=== PATIENT | female | born 1955 | race Caucasian/White ===

== ENCOUNTER 2023-08-03 00:08 | Inpatient (IN) ==
[2023-08-03 00:49] LABS: Basophils # (auto) 0.03 K/uL (0.00-0.20); Basophils % (auto) 0.5 %; Eosinophils # (auto) 0.09 K/uL (0.00-0.50); Eosinophils % (auto) 1.4 %; Hematocrit (blood only) 41.5 % (37.0-47.0); Hemoglobin 13.4 g/dl (12.0-16.0); Immature Granulocytes # (auto) 0.02 K/uL (0.01-0.20); Immature Granulocytes % (auto) 0.3 %; Lymphocytes # (auto) 1.84 K/uL (1.20-3.40); Lymphocytes % (auto) 28.8 %; Mean Corpuscular Hemoglobin 27.7 pg (25.0-34.0); Mean Corpuscular Hgb Conc 32.3 g/dL (32.0-36.0); Mean Corpuscular Volume 85.7 fL (80.0-100.0); Mean Platelet Volume 10.2 fL (9.4-12.4); Monocytes # (auto) 0.56 K/uL (0.11-0.59); Monocytes % (auto) 8.8 %; Neutrophils # (auto) 3.84 K/uL (1.40-6.50); Neutrophils % (auto) 60.2 %; Platelet Count 264 K/uL (130-400); RDW Coefficient of Variation 13.3 % (11.5-14.5); RDW Standard Deviation 41.2 fL (36.4-46.3); Red Blood Count 4.84 M/uL (4.20-5.40); White Blood Count 6.38 K/ul (4.8-10.8)
[2023-08-03] MEDS: ONDANSETRON INJ 2 MG/ML 2 ML VIAL IV STA (00:49)
[2023-08-03] MEDS: MoRPHine SULFATE 4 MG/ML 1 ML CARP\\VIAL IV STA (00:50)
--- NOTE | 2023-08-03 00:55 | Urology Consultation ---
<Statement entered by Rad Love MD - 08/03/23 09:30> I have discussed Ms. Nava case with Aneesh Jordan PA-C and agree with the above documentation. Mendoza catheter placed at outside emergency department appears to be in good position and has been draining well. CT cystogram did not demonstrate any drainage of contrast into areas outside of the bladder, arguing against bladder leak. Radiology comments on possible extraperitoneal collections, which should be adequately managed with catheter in place. I suspect her intra-abdominal fluid is reactive in response to her recent surgery. Since abdominal pain seems to have improved with the catheter, she has no leukocytosis and creatinine is normal, will hold off any additional intervention for the time being. Would maintain Mendoza catheter in place for approximately 1 week to allow bladder rest. Would continue antibiotics and narrow coverage as culture data becomes available. -Rad Love MD Date of Consultation August 03, 2023 Assessment & Plan (1) Abdominal pain: I discussed with the treating clinician in the emergency department the patient is being admitted on the hospital service. From a urologic perspective we will proceed as follows: Provide analgesics Provide antiemetics Maintain Mendoza catheter to gravity drainage The patient did receive Rocephin due to concern for underlying urinary tract infection at the [facility]. Would recommend continuing antibiotics which can be tailored based on urine culture which is pending. Due to the noted abdominal ascites on CT scan from [facility] and the patient's recent urologic procedure we will plan on performing a CT cystogram to evaluate for possible bladder leak/perforation. This study has been ordered and is currently pending. (The patient does have a listed allergy to iodine which is listed as a local reaction; asked the patient if she was aware of this allergy and she is uncertain of any such allergy. Review of her records does show that she has had CT scans at [facility] utilizing IV contrast in the past and she said that she has had no issues) Additional recommendations be forthcoming based on her clinical course as it unfolds Addendum (3:00 AM) Results of patient's abdominal imaging have been obtained. On the CT cystogram small amount of infiltration and fluid in the extraperitoneal space anterior and superior to the bladder containing an abnormal extraluminal air collection was noted raising concern for potential bladder rupture. There is no active extravasation of contrast however on the study. There is a moderate amount of free fluid in the abdomen around the liver and spleen and in the pelvis. There is no intraperitoneal free air. Gallbladder ultrasound showed some gallbladder sludge but no evidence of cholecystitis. I suspect the patient's abdominal pain is due to the findings on the CT cystogram. I discussed the case with my attending physician Dr. Love. Is possible that during the patient's procedure the use of cautery in the bladder could have caused inflammation resulting in the findings noted on the CT cystogram. As there is no contrast extravasation at this time it does not appear that the patient requires acute surgical intervention. For the present time we will maintain Mendoza catheter to promote maximal urinary drainage. Will continue with remainder of plan as noted above but keep the patient n.p.o. and she will be reevaluated in the morning on 08/03/2023 with further recommendations to follow. I revisited with the patient and reviewed the CT cystogram findings with her and outlined the above plan with her and she is in agreement. (2) Acute kidney injury: (3) Urinary retention: History of Present Illness Reason for Consultation: Abdominal pain History of Present Illness This is a 68-year-old female who underwent a surgical procedure by Dr. Te De Anda of [facility] on 07/31/2023. The patient underwent a cystoscopy with transurethral resection of a bladder tumor and fulguration of bladder lesions. The patient notes that she was initially doing well following her procedure and was able to void without difficulty. She notes over the next 24 to 48 hours she began having some generalized abdominal pain and was having urinary frequency only able to void small amounts. She denied any fevers, shakes, or chills. She did report some nausea and vomiting. She does note that she has abdominal pain in the right upper quadrant of her abdomen as well as her lower abdomen. She did not report any radiation or modifying factors to her abdominal pain. Because of patient's symptomatology she is presented to the [place] emergency department. It was felt the patient was having urinary retention so Mendoza catheter was placed where patient had an excess of 350 cc of urine drained. The patient did note significant relief of her symptomatology with this modality. Due to concern for underlying urinary tract infection she did receive a dose of Rocephin. In the emergency department at [facility] the patient did have labs and imaging. I was not able to view the actual CT scan images but a CT scan report was available. This study showed the patient had no evidence of small bowel obstruction or free intraperitoneal air. The kidneys, spleen, and adrenal glands were noted to be normal. The bladder was nondistended and decompressed with a Mendoza catheter in place. There is marked intra-abdominal ascites noted in the gallbladder. Distended. Labs included a CBC were white blood cell count was 10.2. Hemoglobin and hematocrit were 13.7 and 41.2. Platelet count was 351,000. Urinalysis was positive for nitrites and moderate leukocyte esterase. There is also yeast noted on the study but no bacteria. Patient did have a chemistry profile checked at approximately 6:00 PM which showed a sodium and potassium of 132 and 3.8. Her BUN and creatinine were 46 and 3.0. This chemistry profile was repeated at approximately 9:40 PM and her BUN and creatinine had improved to 37 and 1.8. Sodium and potassium were noted to be 130 and 3.7. The treating emergency room physician contacted [facility] requesting transfer. I spoke with the treating emergency room physician and then spoke with my attending physician, Dr. Love who spoke directly with the treating emergency room physician. It was recommended the patient undergo a CT cystogram which [facility] could not perform. No beds were available for transfer at that time and therefore the physician at [facility] hydrated the patient and repeated her chemistry profile as noted above. The patient reported that it was recommended that she go to [facility] in [place], [place] for cystogram but she preferred to come to [facility] where her surgical procedure was performed. Since presentation to [facility] the patient has had repeat labs. CBC reveals white blood cell count, hemoglobin, hematocrit, and platelet count are all within normal range. Chemistry profile shows sodium is 138 with a po tassium of 3.4. The patient's BUN and creatinine is 33 and 1.3. The patient did have a slight elevation of her alkaline phosphatase at 105, but her LFTs were otherwise unremarkable. Her lipase was also nonelevated. At the time of my interview she was lying in bed. She appeared somewhat uncomfortable but was in no distress. Allergies Allergy/AdvReac Type Severity Reaction Status Date / Time iodine Allergy Mild "LOCAL Verified 08/03/23 01:03 REACTION" Sulfa (Sulfonamide Allergy Unknown UNKNOWN Verified 08/03/23 01:03 Antibiotics) Home Medications Medication Instructions Recorded Confirmed Type atenolol 50 mg tablet 50 mg PO QAM 01/05/23 08/03/23 History atorvastatin 20 mg tablet 20 mg PO QAM 01/05/23 08/03/23 History dicyclomine 10 mg capsule 10 mg PO Q6H PRN Abdominal 01/05/23 08/03/23 History Discomfort fluticasone propionate 50 2 spray intranasal QAM 01/05/23 08/03/23 History mcg/actuation nasal spray,suspension hydrochlorothiazide 25 mg tablet 25 mg PO QAM 01/05/23 08/03/23 History losartan 50 mg tablet 50 mg PO QAM 01/05/23 08/03/23 History celecoxib 100 mg capsule (Celebrex) 100 mg PO QAM 07/23/23 08/03/23 History clotrimazole 1 % topical cream 1 applic topical BID PRN ud 07/23/23 08/03/23 History famotidine 20 mg tablet (Pepcid) 20 mg PO QAM PRN Heartburn 07/23/23 08/03/23 History lactase 9,000 unit tablet (Lactose 9,000 unit PO AC PRN ud 07/23/23 08/03/23 History Fast Acting Relief) loperamide 2 mg capsule 2 mg PO Q6H PRN Diarrhea 07/23/23 08/03/23 History loratadine 10 mg tablet 10 mg PO QAM PRN seasonal allergies 07/23/23 08/03/23 History tamsulosin 0.4 mg capsule 0.4 mg PO QAM 07/23/23 08/03/23 History triamcinolone acetonide 0.1 % 1 applic topical BID PRN ud 07/23/23 08/03/23 History topical cream nitrofurantoin 100 mg PO Q12H 5 days #10 caps 07/29/23 08/03/23 Rx monohydrate/macrocrystals 100 mg capsule (Macrobid) cephalexin 500 mg capsule 500 mg PO BID 7 days #14 caps 07/31/23 08/03/23 Rx d-mannose 1 tab PO DAILY 07/31/23 08/03/23 History multivitamin 1 tab PO QAM 07/31/23 08/03/23 History oxycodone-acetaminophen 7.5 mg-325 1 tab PO Q8H PRN pain #7 tabs 07/31/23 08/03/23 Rx mg tablet (Percocet) phenazopyridine 95 mg tablet 95 mg PO TID PRN Bladder Spasms 07/31/23 08/03/23 History phenazopyridine 95 mg tablet 190 mg PO QAM 08/03/23 08/03/23 History Patient History Medical History Heartburn occasional Seasonal allergies Vertigo hx 12/2022 at [facility] Urinary frequency Recurrent UTI (urinary tract infection) IBS (irritable bowel syndrome) HLD (hyperlipidemia) Hypertension Surgical History History of colonoscopy History of bilateral tubal ligation (1989) History of breast biopsy right (benign) S/P ACL repair left S/P total knee arthroplasty right S/P cataract surgery bilateral S/P carpal tunnel release right Family History Mother Heart disease Hypertension Father Gastric disorder Heart disease Hypertension Aunt Breast cancer Other No family history of adverse response to anesthesia Social History Smoking Status: Never smoker Second Hand Exposure: No; Do You Dip or Chew Tobacco: No; Hx Alcohol Use: No Hx Substance Use: No Preferred Language: Moldovan Communication Ability: Effective Visual Impairment: No Limitations Fingernail Sculpturer Required: No Beliefs That Will Affect Care: None marital status: Current Living Situation: Spouse Feels Safe at Home: Yes Assistive Devices: None Review of Systems Constitutional: no fever and no chills Eyes: + corrective lenses Ear, Nose, Mouth, Throat: no hearing loss Respiratory: no cough and no dyspnea Cardiovascular: no chest pain Gastrointestinal: as per Subjective / HPI, + abdominal pain, + nausea and + vomiting Genitourinary: as per Subjective / HPI Musculoskeletal: no back pain Integumentary: no rash Neurologic: no localized weakness Physical Exam Constitutional: WD/WN, vitals as above Eyes: no conjunctival abnormality Wears glasses ENMT: Ears: no external ear abnormality Mouth: no oropharynx abnormality Neck: trachea midline Respiratory: normal respiratory effort, lungs clear to auscultation Cardiovascular: Rate/Rhythm: regular rate and regular rhythm Vessels: dorsalis pedis pulses present and radial pulses present Gastrointestinal (Abdomen): Abdomen is soft and nondistended. It is nonrigid. Bowel sounds are present. There is no rebound tenderness or guarding. Patient did have tenderness noted throughout her abdomen which appear to be somewhat worse in the right upper quadrant of her abdomen. Musculoskeletal: No calf tenderness Skin: no rashes Neurologic: moves all extremities Psychiatric: A+Ox3, euthymic affect Genitourinary: Mendoza catheter is in place. It is draining orange-colored urine and appears patent. There are no clots or debris noted in the Mendoza catheter tubing. Results & Data Vital Signs (Past 12 Hours) Vital Signs Temp Pulse Resp BP Pulse Ox O2 Del Method 08/03/23 00:13 37.0 C 76 18 147/69 H 96 Room Air PG Care Time/CCT Total # of Minutes Spent Total Time Spent with Patient: Total time spent is greater than 50% in coordination of care (as documented) at patient's floor/unit and/or counseling patient: Coding Level of Care Code 91185 INT INP/OBS CARE 3/75MIN Diagnoses Abdominal pain R10.9 Acute kidney injury N17.9 Urinary retention R33.9
[2023-08-03 01:05] LABS: Alanine Aminotransferase 8 U/L (7-52); Albumin Globulin Ratio 1.1 (0.9-2); Albumin Level 3.6 gm/dl (3.4-5.0); Alkaline Phosphatase 105 U/L (34-104); Anion Gap 9 (3-11); Aspartate Aminotransferase 14 U/L (13-39); BUN Creatinine Ratio 24.8 (10-20); Bilirubin,Total 0.5 mg/dl (0.2-1.0); Blood Urea Nitrogen 33 mg/dl (6-23); Calcium 8.8 mg/dl (8.6-10.3); Carbon Dioxide 22 mmol/L (21-32); Chloride 107 mmol/L (98-107); Est GFR (African American) 47.2 ml/min; Est GFR (Non-African American) 40.7 ml/min; Globulin 3.3 gm/dl (2.5-4.0); Glucose 91 mg/dl (70-99(Fasting)); Lipase 11 U/L (11-82); Potassium 3.4 mmol/L (3.5-5.1); Sodium 138 mmol/L (136-145); Total Protein 6.9 gm/dl (6.0-8.3)
[2023-08-03 01:34] LABS: Appearance Urine Clear (Clear); Bacteria Urine Automated None Seen (None Seen); Bilirubin Urine Negative (Negative); Blood Urine 3+ (Negative); Cast Urine Automated 0-2 /lpf (0-2); Color Urine Dark Yellow; Epithelial Cell Urine Auto 0-2 /hpf (0-2); Glucose Urine UA Negative (Negative); Ketones Urine 1+ (Negative); Leukocyte Esterase Urine 1+ (Negative); Nitrite Urine Positive (Negative); Protein Urine Negative (Negative); Specific Gravity Urine 1.005 (1.000-1.030); Urobilinogen Urine Negative (Negative)
--- NOTE | 2023-08-03 01:38 | Emergency Department Note ---
History of Present Illness General Chief complaint: Abdominal Pain Stated complaint: FLUID IN ABD AREA Time Seen by Provider: 08/03/23 00:14 History of Present Illness Maximum Pain Intensity: 3 This 68-year-old female presents the ER from [facility] for worsening abdominal pain who had a bladder lesion removed the other day here at this facility by Dr. De Anda. [facility] did a CAT scan put a Mendoza in and started her on antibiotics. Patient had ascites in the abdomen and had worsening pain which prompted her to come here. Patient denies chest pain, dyspnea, fevers, vomiting, diarrhea. Patient states her creatinine has doubled from baseline. Patient states she was offered to go to do boys transfer from [facility] but states she came here as her providers are here at [facility]. Home Medications Medication Instructions Recorded Confirmed Type atenolol 50 mg tablet 50 mg PO QAM 01/05/23 08/03/23 History atorvastatin 20 mg tablet 20 mg PO QAM 01/05/23 08/03/23 History dicyclomine 10 mg capsule 10 mg PO Q6H PRN Abdominal 01/05/23 08/03/23 History Discomfort fluticasone propionate 50 2 spray intranasal QAM 01/05/23 08/03/23 History mcg/actuation nasal spray,suspension hydrochlorothiazide 25 mg tablet 25 mg PO QAM 01/05/23 08/03/23 History losartan 50 mg tablet 50 mg PO QAM 01/05/23 08/03/23 History celecoxib 100 mg capsule (Celebrex) 100 mg PO QAM 07/23/23 08/03/23 History clotrimazole 1 % topical cream 1 applic topical BID PRN ud 07/23/23 08/03/23 History famotidine 20 mg tablet (Pepcid) 20 mg PO QAM PRN Heartburn 07/23/23 08/03/23 History lactase 9,000 unit tablet (Lactose 9,000 unit PO AC PRN ud 07/23/23 08/03/23 History Fast Acting Relief) loperamide 2 mg capsule 2 mg PO Q6H PRN Diarrhea 07/23/23 08/03/23 History loratadine 10 mg tablet 10 mg PO QAM PRN seasonal allergies 07/23/23 08/03/23 History tamsulosin 0.4 mg capsule 0.4 mg PO QAM 07/23/23 08/03/23 History triamcinolone acetonide 0.1 % 1 applic topical BID PRN ud 07/23/23 08/03/23 History topical cream nitrofurantoin 100 mg PO Q12H 5 days #10 caps 07/29/23 08/03/23 Rx monohydrate/macrocrystals 100 mg capsule (Macrobid) cephalexin 500 mg capsule 500 mg PO BID 7 days #14 caps 07/31/23 08/03/23 Rx d-mannose 1 tab PO DAILY 07/31/23 08/03/23 History multivitamin 1 tab PO QAM 07/31/23 08/03/23 History oxycodone-acetaminophen 7.5 mg-325 1 tab PO Q8H PRN pain #7 tabs 07/31/23 08/03/23 Rx mg tablet (Percocet) phenazopyridine 95 mg tablet 95 mg PO TID PRN Bladder Spasms 07/31/23 08/03/23 History phenazopyridine 95 mg tablet 190 mg PO QAM 08/03/23 08/03/23 History Allergies Allergy/AdvReac Type Severity Reaction Status Date / Time iodine Allergy Mild "LOCAL Verified 08/03/23 01:03 REACTION" Sulfa (Sulfonamide Allergy Unknown UNKNOWN Verified 08/03/23 01:03 Antibiotics) Past Med/Surg History Medical History Heartburn occasional Seasonal allergies Vertigo hx 12/2022 at [facility] Urinary frequency Recurrent UTI (urinary tract infection) IBS (irritable bowel syndrome) HLD (hyperlipidemia) Hypertension Surgical History History of colonoscopy History of bilateral tubal ligation (1989) History of breast biopsy right (benign) S/P ACL repair left S/P total knee arthroplasty right S/P cataract surgery bilateral S/P carpal tunnel release right Family History Mother Heart disease Hypertension Father Gastric disorder Heart disease Hypertension Aunt Breast cancer Other No family history of adverse response to anesthesia Social History Smoking Status: Never smoker Second Hand Exposure: No; Do You Dip or Chew Tobacco: No; Hx Alcohol Use: No Hx Substance Use: No Preferred Language: Amharic Communication Ability: Effective Visual Impairment: No Limitations Automotive Service Technician Required: No Beliefs That Will Affect Care: None marital status: Current Living Situation: Spouse Feels Safe at Home: Yes Assistive Devices: None Review of Systems A total of 10 systems reviewed and were otherwise negative Physical Exam Vital Signs Vital Signs - 24 hr 08/03/23 00:13 08/03/23 00:17 08/03/23 02:08 Temperature 37.0 C Temperature Source Temporal Artery Scan Pulse Rate 76 67 Pulse Rate [Apical] 68 Respiratory Rate 18 18 18 Respiratory Effort / Characteristics Non-Labored Spontaneous Non-Labored Respiratory Depth Normal Normal Respiratory Pattern Regular Regular Blood Pressure 147/69 H Blood Pressure [Right Arm] 124/72 Blood Pressure Mean 95 Blood Pressure Mean [Right Arm] 89 Blood Pressure Position Sitting Pulse Oximetry 96 92 99 Oxygen Delivery Method Room Air Room Air Room Air Sepsis Recent Fever Within 48 Hours No Sepsis New/Unexplained Change in Mental Status N/A Sepsis Action Taken by Nursing No Action Required VITALS: Vitals are noted on the nurse's note and reviewed by myself. Vital signs stable. GENERAL: Pleasant female who appears in pain, in no acute distress, nondiaphoretic, well-developed well-nourished. SKIN: Capillary reflex less than 2 seconds. HEENT: Normocephalic. PERRLA. EOMI. Nares patent. Mucous membranes moist. Neck is supple without nuchal rigidity. HEART: Regular rate and rhythm LUNGS: Clear to auscultation bilaterally without wheezes, rales or rhonchi. No retractions or accessory muscle use. ABDOMEN: Positive bowel sounds x 4. Normal tympanic percussion. Soft, diffusely tender to palpation, Mendoza in place, without masses or organomegaly. Gambino sign negative. No guarding or rebound tenderness. no CVA tenderness MUSCULOSKELETAL: No gross musculoskeletal defects. NEURO: Patient was alert and oriented to person place and time. No focal neurological deficits. Course Administered Medications Discontinued Medications Morphine Sulfate (Morphine Sulfate 4 Mg/Ml 1 Ml Carp\\Vial) 4 mg IV NOW STA Stop: 08/03/23 00:25 Last Admin: 08/03/23 00:50 Dose: 4 mg Documented By: [facility] Ondansetron HCl (Ondansetron Inj 2 Mg/Ml 2 Ml Vial) 4 mg IV NOW STA Stop: 08/03/23 00:25 Last Admin: 08/03/23 00:49 Dose: 4 mg Documented By: [facility] Medical Decision Making Medical Records Attestation: I reviewed the patient's medical records. Home Medications Current Medication List: was personally reviewed by id Laboratory Data Attestation: I reviewed the patient's lab results. 08/03/23 00:30 08/03/23 00:30 Lab Results 08/03/23 08/03/23 Range/Units 00:30 01:00 WBC 6.38 (4.8-10.8) K/ul RBC 4.84 (4.20-5.40) M/uL Hgb 13.4 (12.0-16.0) g/dl Hct 41.5 (37.0-47.0) % MCV 85.7 (80.0-100.0) fL MCH 27.7 (25.0-34.0) pg MCHC 32.3 (32.0-36.0) g/dL RDW Std Deviation 41.2 (36.4-46.3) fL RDW Coeff of Lynda 13.3 (11.5-14.5) % Plt Count 264 (130-400) K/uL MPV 10.2 (9.4-12.4) fL Immature Gran % (Auto) 0.3 % Neut % (Auto) 60.2 % Lymph % (Auto) 28.8 % Prentiss % (Auto) 8.8 % Eos % (Auto) 1.4 % Baso % (Auto) 0.5 % Neut # (Auto) 3.84 (1.40-6.50) K/uL Lymph # (Auto) 1.84 (1.20-3.40) K/uL Prentiss # (Auto) 0.56 (0.11-0.59) K/uL Eos # (Auto) 0.09 (0.00-0.50) K/uL Baso # (Auto) 0.03 (0.00-0.20) K/uL Immature Gran # (Auto) 0.02 (0.01-0.20) K/uL Sodium 138 (136-145) mmol/L Potassium 3.4 L (3.5-5.1) mmol/L Chloride 107 (98-107) mmol/L Carbon Dioxide 22 (21-32) mmol/L Anion Gap 9 (3-11) BUN 33 H (6-23) mg/dl Creatinine 1.33 H (0.6-1.2) mg/dl Est Cr Clr Drug Dosing Not Reportable Est GFR ( Amer) 47.2 ml/min Est GFR (Non-Af Amer) 40.7 ml/min BUN/Creatinine Ratio 24.8 H (10-20) Glucose 91 (70-99(Fasting)) mg/dl Calcium 8.8 (8.6-10.3) mg/dl Total Bilirubin 0.5 (0.2-1.0) mg/dl AST 14 (13-39) U/L ALT 8 (7-52) U/L Alkaline Phosphatase 105 H (34-104) U/L Total Protein 6.9 (6.0-8.3) gm/dl Albumin 3.6 (3.4-5.0) gm/dl Globulin 3.3 (2.5-4.0) gm/dl Albumin/Globulin Ratio 1.1 (0.9-2) Lipase 11 (11-82) U/L Urine Color Dark Yellow Urine Appearance Clear (Clear) Urine pH 6.0 (4.5-7.5) Ur Specific [place] 1.005 (1.000-1.030) Urine Protein Negative (Negative) Urine Glucose (UA) Negative (Negative) Urine Ketones 1+ H (Negative) Urine Blood 3+ H (Negative) Urine Nitrite Positive A (Negative) Urine Bilirubin Negative (Negative) Urine Urobilinogen Negative (Negative) Ur Leukocyte Esterase 1+ H (Negative) Urine WBC (Auto) 6-10 H (0-5) /hpf Urine RBC (Auto) 6-10 H (0-2) /hpf U Hyaline Cast (Auto) 0-2 (0-2) /lpf U Epithel Cells (Auto) 0-2 (0-2) /hpf Urine Bacteria (Auto) None Seen (None Seen) Imaging Data Radiologist's Impression: Abdomen/Pelvis CT 08/03/23 01:17 Exam(s): CT ABDOMEN + PELVIS With Contrast IV Amt: 100 ml cystoconray EXAM: CT Abdomen and Pelvis With Intravenous Contrast CLINICAL HISTORY: Reason for exam: abdominal pain; r/o bladder perforation. TECHNIQUE: Axial computed tomography images of the abdomen and pelvis with intravenous contrast. CTDI is 25.5 mGy and DLP is 1282 mGy-cm. Automated exposure control was utilized for the study. A dose lowering technique was utilized adhering to the principles of ALARA. CONTRAST: Patient received 100 ml cystoconray of IV contrast COMPARISON: No relevant prior studies available. FINDINGS: ABDOMEN: Liver: Unremarkable. No mass. Gallbladder and bile ducts: Unremarkable. No calcified stones. No ductal dilation. Pancreas: Unremarkable. No mass. No ductal dilation. Spleen: Unremarkable. No splenomegaly. Adrenals: Unremarkable. No mass. Kidneys and ureters: Unremarkable. No solid mass. No hydronephrosis. Stomach and bowel: Diverticulosis without diverticulitis. No obstruction. PELVIS: Appendix: No findings to suggest acute appendicitis. Bladder: A Mendoza catheter is seen in the bladder. High density contrast is seen within the bladder lumen. There is no extravasated bladder contrast. An air collection is seen in the anterior aspect of the bladder. There is a flat interface with the contrasted bladder lumen; however, the margins of the interface are unusual and this air collection may not be fully continuous with the enhanced bladder lumen. There is a small amount of fluid in the extraperitoneal space anterior to the superior aspect of the bladder. Small abnormal air collections are seen in the space as well. ABDOMEN and PELVIS: Intraperitoneal space: There is a moderate amount of free fluid in the abdomen around the liver and spleen as well as a large amount of fluid in the pelvis. No free air. Bones/joints: No acute findings. Soft tissues: Unremarkable. Vasculature: Unremarkable. No abdominal aortic aneurysm. Lymph nodes: Unremarkable. No enlarged lymph nodes. IMPRESSION: A moderate amount of abnormal fluid in the abdomen and pelvis. Small amount of infiltration and fluid in the extraperitoneal space anterior to the superior aspect of the bladder, also containing abnormal extraluminal air collections. This likely represents bladder rupture. There is however currently no active extravasation of active extravasation of contrast within the bladder lumen. Electronically signed by: Micky Huerta MD 08/03/23 02:16 AM [facility] Narrative Prior records/ancillary studies reviewed. Triage Nursing notes reviewed. Additional history obtained from family. The patient's history was concerning for abdominal pain. Differential diagnosis: Etiologies such as postsurgical complication, appendicitis, diverticulitis, PUD, biliary pathology, UTI, pancreatitis, obstruction, mesenteric ischemia, aortic pathology, infections, inflammatory bowel disease, renal colic, as well as others were entertained. Physical examination findings: As above. ER treatment provided: An order was placed for continuous cardiac monitoring. The monitor shows a rate of 60-100 with a sinus rhythm per my Independent interpretation. Morphine, Zofran were ordered Records from [facility] were reviewed On reassessment the patient felt better. Diagnostics interpreted by me: The labs Independently Interpreted by myself revealed no worrisome leukocytosis, creatinine 1.3 which appears improved from [facility] laboratory testing Imaging studies: CT abdomen pelvis without contrast that was done at [facility] showed marked intra-abdominal ascites, distended gallbladder and atrophy of the pancreas. Consultation: A consultation was placed with the hospitalist. The case was discussed and diagnostics were reviewed. The patient was evaluated in the ER for further treatment. Urology midlevel provider was consulted and did evaluate the patient. He did order a cystogram of the bladder and patient will be admitted to the medical service. Exam and history seem consistent with worsening abdominal pain with ascites from recent bladder lesion removal. Patient still moderate amount of pain. Medicine and urology are consulted. Patient will be bedded to the medical service for further evaluation and treatment. Patient is agreeable. She received Rocephin at [facility] just prior to arrival. She was medicated as above for her pain. By the evaluation outlined above emergent etiologies such as appendicitis, diverticulitis, PUD, biliary pathology, pancreatitis, obstruction, mesenteric ischemia, aortic pathology, inflammatory bowel disease, renal colic, as well as others were deemed relatively unlikely. The pt informed about the findings as listed above. All questions were answered and pleased with the treatment. The chart was completed utilizing [employer] Speech voice recognition software. Grammatical errors, random word insertions, pronoun errors, and incomplete sentences are an occassional consequence of this system due to software limitations, ambient noise, and hardware issues. Any formal questions or concerns about the content, text, or information contained within the body of this dictation should be directly addressed to the physician assistant plant controller for clarification. Impression & Plan Abdominal pain, acute Discharge Plan Visit Data Chief Complaint: Abdominal Pain Stated Complaint: FLUID IN ABD AREA ED Provider: Sophie Acuna ED Midlevel Provider: [place] Discharge Problem: Abdominal pain, acute Patient Disposition: Admitted As Inpatient Condition: Good Forms Stand Alone Forms: [employer] Prescriptions Prescriptions: No Action nitrofurantoin monohyd/m-cryst [Macrobid] 100 mg capsule 100 mg PO Q12H 5 Days Qty: 10 0RF Rx Instructions: must administer with a meal/food losartan 50 mg Tablet 50 mg PO QAM atorvastatin 20 mg Tablet 20 mg PO QAM hydrochlorothiazide 25 mg Tablet 25 mg PO QAM atenolol 50 mg Tablet 50 mg PO QAM fluticasone propionate 50 mcg/actuation [place],Suspension 2 spray INTRANASAL QAM dicyclomine 10 mg Capsule 10 mg PO Q6H PRN (Reason: Abdominal Discomfort) loperamide 2 mg Capsule 2 mg PO Q6H PRN (Reason: Diarrhea) triamcinolone acetonide 0.1 % Cream 1 applic TOPICAL BID PRN (Reason: ud) famotidine [Pepcid] 20 mg Tablet 20 mg PO QAM PRN (Reason: Heartburn) lactase [Lactose Fast Acting Relief] 9,000 unit Tablet 9,000 unit PO AC PRN (Reason: ud) Rx Instructions: administer with first bite of dairy food celecoxib [Celebrex] 100 mg Capsule 100 mg PO QAM clotrimazole 1 % Cream 1 applic TOPICAL BID PRN (Reason: ud) loratadine 10 mg Tablet 10 mg PO QAM PRN (Reason: seasonal allergies) tamsulosin 0.4 mg capsule 0.4 mg PO QAM oxycodone-acetaminophen [Percocet] 7.5-325 mg tablet 1 tab PO Q8H PRN (Reason: pain) Qty: 7 0RF cephalexin 500 mg capsule 500 mg PO BID 7 Days Qty: 14 0RF phenazopyridine 95 mg Tablet 95 mg PO TID PRN (Reason: Bladder Spasms) d-mannose 1 tab PO DAILY multivitamin Tablet 1 tab PO QAM phenazopyridine [Azo] 95 mg Tablet 190 mg PO QAM Referrals Referrals: Karime Yin DO [Primary Care Provider] -
--- NOTE | 2023-08-03 02:17 | CT Scan Report ---
Exam(s): CT ABDOMEN + PELVIS With Contrast IV Amt: 100 ml cystoconray EXAM: CT Abdomen and Pelvis With Intravenous Contrast CLINICAL HISTORY: Reason for exam: abdominal pain; r/o bladder perforation. TECHNIQUE: Axial computed tomography images of the abdomen and pelvis with intravenous contrast. CTDI is 25.5 mGy and DLP is 1282 mGy-cm. Automated exposure control was utilized for the study. A dose lowering technique was utilized adhering to the principles of ALARA. CONTRAST: Patient received 100 ml cystoconray of IV contrast COMPARISON: No relevant prior studies available. FINDINGS: ABDOMEN: Liver: Unremarkable. No mass. Gallbladder and bile ducts: Unremarkable. No calcified stones. No ductal dilation. Pancreas: Unremarkable. No mass. No ductal dilation. Spleen: Unremarkable. No splenomegaly. Adrenals: Unremarkable. No mass. Kidneys and ureters: Unremarkable. No solid mass. No hydronephrosis. Stomach and bowel: Diverticulosis without diverticulitis. No obstruction. PELVIS: Appendix: No findings to suggest acute appendicitis. Bladder: A Mendoza catheter is seen in the bladder. High density contrast is seen within the bladder lumen. There is no extravasated bladder contrast. An air collection is seen in the anterior aspect of the bladder. There is a flat interface with the contrasted bladder lumen; however, the margins of the interface are unusual and this air collection may not be fully continuous with the enhanced bladder lumen. There is a small amount of fluid in the extraperitoneal space anterior to the superior aspect of the bladder. Small abnormal air collections are seen in the space as well. ABDOMEN and PELVIS: Intraperitoneal space: There is a moderate amount of free fluid in the abdomen around the liver and spleen as well as a large amount of fluid in the pelvis. No free air. Bones/joints: No acute findings. Soft tissues: Unremarkable. Vasculature: Unremarkable. No abdominal aortic aneurysm. Lymph nodes: Unremarkable. No enlarged lymph nodes. IMPRESSION: A moderate amount of abnormal fluid in the abdomen and pelvis. Small amount of infiltration and fluid in the extraperitoneal space anterior to the superior aspect of the bladder, also containing abnormal extraluminal air collections. This likely represents bladder rupture. There is however currently no active extravasation of active extravasation of contrast within the bladder lumen. Electronically signed by: Micky Huerta MD 08/03/23 02:16 AM
--- NOTE | 2023-08-03 02:26 | History & Physical Report ---
Date of Service August 03, 2023 Assessment & Plan (1) Abdominal pain, acute: Plan: 68-year-old female with past medical history significant for hyperlipidemia, hypertension, arthrosclerosis of aorta, irritable bowel syndrome, recurrent UTI, lactulose intolerance, hypertensive heart disease without heart failure and patient recently underwent cystoscopy with transurethral resection of bladder tumor and fulguration of bladder lesions on July 31, 2023 ,went to [place] emergency room today because of abdominal pain and had urinary frequency, and only able to void small amounts and there CT scan showed new onset ascites and she was sent here for CT cystogram which [facility] could not perform. Patient was also found to have UTI. Patient states she is having lower abdominal pain. Currently pain is controlled with the pain medication. Had nausea and vomited yesterday. Patient denies any hematuria. Patient was having urinary retention and Mendoza was placed at [facility]. Urine is somewhat slight pink color. Denies any fevers or chills. Did not move bowels since last couple of days. Appetite is down past couple of days. Denies any chest pain or shortness of breath. No headache. No cough. Currently hemodynamically stable. Acute abdominal pain Recent cystoscopy with transurethral resection of bladder tumor and fulguration of bladder lesions on July 31, [address] [facility] [address] abdomen pelvis without contrast showed new onset ascites Was transferred here fo CT cystogram which is done currently and showing moderate amount of upper abdominal fluid in the abdomen pelvis and possible bladder rupture and however currently no active extravasation of contrast within the bladder lumen Urology on board N.p.o., IV fluids, IV Zosyn, pain control Further plan as per urology Close monitor History of hypertension Continue atenolol Holding losartan for now IV hydralazine as needed UTI Received Rocephin Placed on Zosyn currently Will follow cultures. SHANNA cr 1.3 avoid nephrotoxic agents will f/u labs. Hyperlipidemia On statin DVT prophylaxis SCDs Disposition Med/telemetry Full code History of Present Illness Chief Complaint: Abdominal pain Primary Care Provider: Karime Yin DO 68-year-old female with past medical history significant for hyperlipidemia, hypertension, arthrosclerosis of aorta, irritable bowel syndrome, recurrent UTI, lactulose intolerance, hypertensive heart disease without heart failure and patient recently underwent cystoscopy with transurethral resection of bladder tumor and fulguration of bladder lesions on July 31, 2023 ,went to [place] emergency room today because of abdominal pain and had urinary frequency, and only able to void small amounts and there CT scan showed new onset ascites and she was sent here for CT cystogram which [facility] could not perform. Patient was also found to have UTI. Patient states she is having lower abdominal pain. Currently pain is controlled with the pain medication. Had nausea and vomited yesterday. Patient denies any hematuria. Patient was having urinary retention and Mendoza was placed at [facility]. Urine is somewhat slight pink color. Denies any fevers or chills. Did not move bowels since last couple of days. Appetite is down past couple of days. Denies any chest pain or shortness of breath. No headache. No cough. Currently hemodynamically stable. Past medical history. As mentioned above. Past surgical history. Right total knee arthroplasty. Carpal tunnel surgery. Colonoscopy. Colonoscopy biopsy. Cystoscopy. Dental surgery. Ligation of oviducts. Cataract surgery. Repair of left knee cartilage. Sigmoidoscopy. Ultrasound-guided right breast biopsy. Social history. . No smoking. No alcohol use. No drug use. Family history. Father had asthma and allergies, heart disorder, hypertension, lung disorder. Mother had A-fib, hypertension.Aunt had breast cancer. Paternal grandmother had colon cancer. Maternal grandmother had diabetes. Allergies Allergy/AdvReac Type Severity Reaction Status Date / Time iodine Allergy Mild "LOCAL Verified 08/03/23 01:03 REACTION" Sulfa (Sulfonamide Allergy Unknown UNKNOWN Verified 08/03/23 01:03 Antibiotics) Home Medications Medication Instructions Recorded Confirmed Type atenolol 50 mg tablet 50 mg PO QAM 01/05/23 08/03/23 History atorvastatin 20 mg tablet 20 mg PO QAM 01/05/23 08/03/23 History dicyclomine 10 mg capsule 10 mg PO Q6H PRN Abdominal 01/05/23 08/03/23 History Discomfort fluticasone propionate 50 2 spray intranasal QA 01/05/23 08/03/23 History mcg/actuation nasal spray,suspension hydrochlorothiazide 25 mg tablet 25 mg PO QAM 01/05/23 08/03/23 History losartan 50 mg tablet 50 mg PO QAM 01/05/23 08/03/23 History celecoxib 100 mg capsule (Celebrex) 100 mg PO QAM 07/23/23 08/03/23 History clotrimazole 1 % topical cream 1 applic topical BID PRN ud 07/23/23 08/03/23 History famotidine 20 mg tablet (Pepcid) 20 mg PO QAM PRN Heartburn 07/23/23 08/03/23 History lactase 9,000 unit tablet (Lactose 9,000 unit PO AC PRN ud 07/23/23 08/03/23 History Fast Acting Relief) loperamide 2 mg capsule 2 mg PO Q6H PRN Diarrhea 07/23/23 08/03/23 History loratadine 10 mg tablet 10 mg PO QAM PRN seasonal allergies 07/23/23 08/03/23 History tamsulosin 0.4 mg capsule 0.4 mg PO QAM 07/23/23 08/03/23 History triamcinolone acetonide 0.1 % 1 applic topical BID PRN ud 07/23/23 08/03/23 History topical cream nitrofurantoin 100 mg PO Q12H 5 days #10 caps 07/29/23 08/03/23 Rx monohydrate/macrocrystals 100 mg capsule (Macrobid) cephalexin 500 mg capsule 500 mg PO BID 7 days #14 caps 07/31/23 08/03/23 Rx d-mannose 1 tab PO DAILY 07/31/23 08/03/23 History multivitamin 1 tab PO QAM 07/31/23 08/03/23 History oxycodone-acetaminophen 7.5 mg-325 1 tab PO Q8H PRN pain #7 tabs 07/31/23 08/03/23 Rx mg tablet (Percocet) phenazopyridine 95 mg tablet 95 mg PO TID PRN Bladder Spasms 07/31/23 08/03/23 History phenazopyridine 95 mg tablet 190 mg PO QAM 08/03/23 08/03/23 History Past Med/Surg History Medical History Heartburn occasional Seasonal allergies Vertigo hx 12/2022 at [facility] Urinary frequency Recurrent UTI (urinary tract infection) IBS (irritable bowel syndrome) HLD (hyperlipidemia) Hypertension Surgical History History of colonoscopy History of bilateral tubal ligation (1989) History of breast biopsy right (benign) S/P ACL repair left S/P total knee arthroplasty right S/P cataract surgery bilateral S/P carpal tunnel release right Family History Mother Heart disease Hypertension Father Gastric disorder Heart disease Hypertension Aunt Breast cancer Other No family history of adverse response to anesthesia Social History Smoking Status: Never smoker Second Hand Exposure: No; Do You Dip or Chew Tobacco: No; Hx Alcohol Use: No Hx Substance Use: No Preferred Language: Lao Communication Ability: Effective Visual Impairment: No Limitations Industrial Relations Manager Required: No Beliefs That Will Affect Care: None marital status: Current Living Situation: Spouse Feels Safe at Home: Yes Safety Concerns: Feels Safe At This Time Assistive Devices: None Review of Systems Review of Systems: All systems reviewed & are unremarkable except as noted in HPI & below Physical Exam Physical Exam: General- Not in distress Head- atraumatic Eyes- PERRL. ENT- oropharynx clear Neck- supple, no JVD. Lungs- clear to auscultation no wheezing or crackles. Heart- regular rate and rhythm; no murmur, no gallop. Abdomen- normal bowel sounds, soft, tenderness in lower abdomen. Extremities- no pretibial edema, no erythema seen. Neuro- alert, oriented PERRL, no facial palsy; no dysarthria; moves extremitie s. Results & Data Results & Data Vital Signs (Past 12 Hours) Vital Signs Temp Pulse Resp BP Pulse Ox O2 Del Method 08/03/23 00:17 67 18 92 Room Air 08/03/23 00:13 37.0 C 76 18 147/69 H 96 Room Air Diagnostic Findings Laboratory Results WBC 6.38 K/ul (4.8-10.8) 08/03/23 00:30 RBC 4.84 M/uL (4.20-5.40) 08/03/23 00:30 Hgb 13.4 g/dl (12.0-16.0) 08/03/23 00:30 Hct 41.5 % (37.0-47.0) 08/03/23 00:30 MCV 85.7 fL (80.0-100.0) 08/03/23 00:30 MCH 27.7 pg (25.0-34.0) 08/03/23 00:30 MCHC 32.3 g/dL (32.0-36.0) 08/03/23 00:30 RDW Std Deviation 41.2 fL (36.4-46.3) 08/03/23 00: RDW Coeff of Lynda 13.3 % (11.5-14.5) 08/03/23 00:30 Plt Count 264 K/uL (130-400) 08/03/23 00:30 MPV 10.2 fL (9.4-12.4) 08/03/23 00:30 Immature Gran % (Auto) 0.3 % 08/03/23 00:30 Neut % (Auto) 60.2 % 08/03/23 00:30 Lymph % (Auto) 28.8 % 08/03/23 00:30 Man[place] % (Auto) 8.8 % 08/03/23 00:30 Eos % (Auto) 1.4 % 08/03/23 00:30 Baso % (Auto) 0.5 % 08/03/23 00:30 Neut # (Auto) 3.84 K/uL (1.40-6.50) 08/03/23 00:30 Lymph # (Auto) 1.84 K/uL (1.20-3.40) 08/03/23 00:30 Manati # (Auto) 0.56 K/uL (0.11-0.59) 08/03/23 00:30 Eos # (Auto) 0.09 K/uL (0.00-0.50) 08/03/23 00:30 Baso # (Auto) 0.03 K/uL (0.00-0.20) 08/03/23 00:30 Immature Gran # (Auto) 0.02 K/uL (0.01-0.20) 08/03/23 00:30 Sodium 138 mmol/L (136-145) 08/03/23 00:30 Potassium 3.4 mmol/L (3.5-5.1) L 08/03/23 00:30 Chloride 107 mmol/L (98-107) 08/03/23 00:30 Carbon Dioxide 22 mmol/L (21-32) 08/03/23 00:30 Anion Gap 9 (3-11) 08/03/23 00:30 BUN 33 mg/dl (6-23) H 08/03/23 00:30 Creatinine 1.33 mg/dl (0.6-1.2) H 08/03/23 00:30 Est Cr Clr Drug Dosing Not Reportable 08/03/23 00:30 Est GFR ( Amer) 47.2 ml/min 08/03/23 00:30 Est GFR (Non-Af Amer) 40.7 ml/min 08/03/23 00:30 BUN/Creatinine Ratio 24.8 (10-20) H 08/03/23 00:30 Glucose 91 mg/dl (70-99(Fasting)) 08/03/23 00:30 Calcium 8.8 mg/dl (8.6-10.3) 08/03/23 00:30 Total Bilirubin 0.5 mg/dl (0.2-1.0) 08/03/23 00:30 AST 14 U/L (13-39) 08/03/23 00:30 ALT 8 U/L (7-52) 08/03/23 00:30 Alkaline Phosphatase 105 U/L (34-104) H 08/03/23 00:30 Total Protein 6.9 gm/dl (6.0-8.3) 08/03/23 00:30 Albumin 3.6 gm/dl (3.4-5.0) 08/03/23 00:30 Globulin 3.3 gm/dl (2.5-4.0) 08/03/23 00:30 Albumin/Globulin Ratio 1.1 (0.9-2) 08/03/23 00:30 Lipase 11 U/L (11-82) 08/03/23 00:30 Urine Color Dark Yellow 08/03/23 01:00 Urine Appearance Clear (Clear) 08/03/23 01:00 Urine pH 6.0 (4.5-7.5) 08/03/23 01:00 Ur Specific Sheldon 1.005 (1.000-1.030) 08/03/23 01:00 Urine Protein Negative (Negative) 08/03/23 01:00 Urine Glucose (UA) Negative (Negative) 08/03/23 01:00 Urine Ketones 1+ (Negative) H 08/03/23 01:00 Urine Blood 3+ (Negative) H 08/03/23 01:00 Urine Nitrite Positive (Negative) A 08/03/23 01:00 Urine Bilirubin Negative (Negative) 08/03/23 01:00 Urine Urobilinogen Negative (Negative) 08/03/23 01:00 Ur Leukocyte Esterase 1+ (Negative) H 08/03/23 01:00 Urine WBC (Auto) 6-10 /hpf (0-5) H 08/03/23 01:00 Urine RBC (Auto) 6-10 /hpf (0-2) H 08/03/23 01:00 U Hyaline Cast (Auto) 0-2 /lpf (0-2) 08/03/23 01:00 U Epithel Cells (Auto) 0-2 /hpf (0-2) 08/03/23 01:00 Urine Bacteria (Auto) None Seen (None Seen) 08/03/23 01:00 Impressions Abdomen/Pelvis CT 08/03/23 01:17 Exam(s): CT ABDOMEN + PELVIS With Contrast IV Amt: 100 ml cystoconray EXAM: CT Abdomen and Pelvis With Intravenous Contrast CLINICAL HISTORY: Reason for exam: abdominal pain; r/o bladder perforation. TECHNIQUE: Axial computed tomography images of the abdomen and pelvis with intravenous contrast. CTDI is 25.5 mGy and DLP is 1282 mGy-cm. Automated exposure control was utilized for the study. A dose lowering technique was utilized adhering to the principles of ALARA. CONTRAST: Patient received 100 ml cystoconray of IV contrast COMPARISON: No relevant prior studies available. FINDINGS: ABDOMEN: Liver: Unremarkable. No mass. Gallbladder and bile ducts: Unremarkable. No calcified stones. No ductal dilation. Pancreas: Unremarkable. No mass. No ductal dilation. Spleen: Unremarkable. No splenomegaly. Adrenals: Unremarkable. No mass. Kidneys and ureters: Unremarkable. No solid mass. No hydronephrosis. Stomach and bowel: Diverticulosis without diverticulitis. No obstruction. PELVIS: Appendix: No findings to suggest acute appendicitis. Bladder: A Mendoza catheter is seen in the bladder. High density contrast is seen within the bladder lumen. There is no extravasated bladder contrast. An air collection is seen in the anterior aspect of the bladder. There is a flat interface with the contrasted bladder lumen; however, the margins of the interface are unusual and this air collection may not be fully continuous with the enhanced bladder lumen. There is a small amount of fluid in the extraperitoneal space anterior to the superior aspect of the bladder. Small abnormal air collections are seen in the space as well. ABDOMEN and PELVIS: Intraperitoneal space: There is a moderate amount of free fluid in the abdomen around the liver and spleen as well as a large amount of fluid in the pelvis. No free air. Bones/joints: No acute findings. Soft tissues: Unremarkable. Vasculature: Unremarkable. No abdominal aortic aneurysm. Lymph nodes: Unremarkable. No enlarged lymph nodes. IMPRESSION: A moderate amount of abnormal fluid in the abdomen and pelvis. Small amount of infiltration and fluid in the extraperitoneal space anterior to the superior aspect of the bladder, also containing abnormal extraluminal air collections. This likely represents bladder rupture. There is however currently no active extravasation of active extravasation of contrast within the bladder lumen. Electronically signed by: Micky Huerta MD 08/03/23 02:16 AM Code Status & VTE Plan VTE Prophylaxis Plan VTE Prophylaxis will be ordered: Yes
--- NOTE | 2023-08-03 03:08 | Ultrasound Report ---
Exam(s): US ABDOMEN LIMITED EXAM: US Abdomen Limited, Right Upper Quadrant CLINICAL HISTORY: Reason for exam: RUQ pain. TECHNIQUE: Real-time ultrasound of the right upper quadrant with image documentation. COMPARISON: No relevant prior studies available. FINDINGS: Liver: Unremarkable. No mass. No intrahepatic bile duct dilation. Gallbladder: Gallbladder sludge. No gallstones. No gallbladder wall thickening. Common bile duct: Unremarkable as visualized. No stones. No dilation. Pancreas: Unremarkable as visualized. Right kidney: Unremarkable. No stones. No solid mass. No hydronephrosis. IMPRESSION: Gallbladder sludge. No acute findings in the right upper quadrant. Electronically signed by: Micky Huerta MD 08/03/23 03:08 AM
[2023-08-03] MEDS: POTASSIUM CHLORIDE / WTR 10 MEQ/100 ML PLCT IV SCH (03:15)
[2023-08-03] MEDS ORDERED: ONDANSETRON INJ 2 MG/ML 2 ML VIAL IV PRN (05:44)
[2023-08-03] MEDS ORDERED: HYDROmorphone INJ 0.5 MG/0.5 ML SYR IV PRN (05:44)
[2023-08-03] MEDS: SODIUM CHLORIDE 0.9% 1,000 ML IV SCH (06:33)
[2023-08-03] MEDS: PIPER/TAZO 4.5g in D5W MINI-B 100 ML IV ONE (06:33)
[2023-08-03] MEDS: ATORVASTATIN 20 MG TAB PO SCH (07:57)
[2023-08-03] MEDS: ATENOLOL 50 MG TABLET PO SCH (07:57)
[2023-08-03 08:19] LABS: Basophils # (auto) 0.04 K/uL (0.00-0.20); Basophils % (auto) 0.8 %; Eosinophils # (auto) 0.14 K/uL (0.00-0.50); Eosinophils % (auto) 2.8 %; Hematocrit (blood only) 33.4 % (37.0-47.0); Hemoglobin 10.9 g/dl (12.0-16.0); Immature Granulocytes # (auto) 0.06 K/uL (0.01-0.20); Immature Granulocytes % (auto) 1.2 %; Lymphocytes # (auto) 1.48 K/uL (1.20-3.40); Lymphocytes % (auto) 29.7 %; Mean Corpuscular Hemoglobin 27.8 pg (25.0-34.0); Mean Corpuscular Hgb Conc 32.6 g/dL (32.0-36.0); Mean Corpuscular Volume 85.2 fL (80.0-100.0); Mean Platelet Volume 10.7 fL (9.4-12.4); Monocytes # (auto) 0.52 K/uL (0.11-0.59); Monocytes % (auto) 10.4 %; Neutrophils # (auto) 2.74 K/uL (1.40-6.50); Neutrophils % (auto) 55.1 %; Platelet Count 246 K/uL (130-400); RDW Coefficient of Variation 13.6 % (11.5-14.5); Red Blood Count 3.92 M/uL (4.20-5.40); White Blood Count 4.98 K/ul (4.8-10.8)
[2023-08-03 08:58] LABS: BUN Creatinine Ratio 29.7 (10-20); Calcium 8.5 mg/dl (8.6-10.3); Creatinine Clr Calc Pharmacy 69.5 ml/min; Est GFR (African American) 95.8 ml/min; Est GFR (Non-African American) 82.7 ml/min; Magnesium 1.9 mg/dl (1.7-2.4); Potassium 3.6 mmol/L (3.5-5.1)
--- NOTE | 2023-08-03 11:34 | Communication Note ---
Date of Service: August 03, 2023 Jose seen and examined Reports feeling better at this time Still has mild abd pain Has mild suprapubic tenderness on exam. Urology reports no procedure today Diet ordered. Continue woods Send urine culture Continue iv antibiotics SHANNA resolved. Stop IVF Other plans as detailed in H/P
[2023-08-03] MEDS: PIPERACILLIN/TAZOBACTAM 4.5 GM in DEXTROSE 5% MINI-B 100 ML IV SCH (11:44)
[2023-08-04] MEDS: hydrALAZINE HCL 20 MG/ML VIAL IV PRN (05:43)
--- NOTE | 2023-08-04 08:02 | Urology Progress Note ---
Date of Service August 04, 2023 Assessment & Plan (1) Abdominal pain, acute: (2) Urinary retention: (3) Acute kidney injury: Plan 68yo F who is s/p TURBT 07/31/[address] De Anda admitted for concern of bladder leak. CT cystogram did not demonstrate any drainage of contrast into areas outside of the bladder and therefore unlikely to be a bladder leak. Extraperitoneal collections were also noted which should be adequately managed with catheter in place. The intra-abdominal fluid is likely reactive in response to her recent surgery. She is afebrile, hypertensive. Labs (08/02) showing no leukocytosis and normal renal function. Urine culture preliminary no growth. Mendoza draining appropriately - urine is clear yellow. Plan- No plan for intervention. Would maintain Mendoza catheter for approximately 1 week to allow bladder rest. Continue antibiotics and narrow coverage as culture data becomes available. Continue supportive care. Will arrange outpatient follow-up with our service for catheter removal. will follow along. Admission and Anticipated Discharge Date Admission Date: August 03, 2023 Subjective Pt examined at bedside this AM. Awake, resting in bed on arrival. No acute distress. Denies abdominal, flank, and suprapubic pain. Denies f/c/n/v. Mendoza draining clear yellow urine. Review of Systems Constitutional: as per Subjective / HPI Genitourinary: as per Subjective / HPI Physical Exam Constitutional: no acute distress Respiratory: no respiratory distress and no labored breathing Gastrointestinal (Abdomen): Inspection/Auscultation: abdomen not distended Percussion/Palpation: + abdomen tender (Mild suprapubic tenderness with palpation) and abdomen soft Neurologic: awake Psychiatric: A+Ox3, euthymic affect Genitourinary: Mendoza draining clear yellow urine Results & Data Vital Signs (Past 12 Hours) Vital Signs Temp Pulse Pulse Resp BP BP Pulse Ox 08/04/23 07:21 36.8 C 63 18 163/81 H 94 08/04/23 06:18 92 H 156/61 H 08/04/23 05:42 85 176/81 H 08/04/23 04:23 36.7 C 76 20 190/75 H 94 08/03/23 23:50 36.9 C 73 20 144/74 H 93 08/03/23 22:02 71 O2 Del Method 08/04/23 07:21 Room Air 08/04/23 06:18 08/04/23 05:42 08/04/23 04:23 Room Air 08/03/23 23:50 Room Air 08/03/23 22:02 PG Care Time/CCT Total # of Minutes Spent Total Time Spent with Patient: Total time spent is greater than 50% in coordination of care (as documented) at patient's floor/unit and/or counseling patient: Coding Level of Care Code 53759 SUB INP/OBS CARE 2/35MIN Diagnoses Abdominal pain, acute R10.9 Urinary retention R33.9 Acute kidney injury N17.9
[2023-08-04] MEDS: SENNA 8.6 MG TAB PO SCH (08:38)
--- NOTE | 2023-08-04 14:13 | Hospitalist Progress Note ---
Date of Service August 04, 2023 Assessment & Plan (1) Abdominal pain, acute: Plan: 68-year-old female with past medical history significant for hyperlipidemia, hypertension, arthrosclerosis of aorta, irritable bowel syndrome, recurrent UTI, lactulose intolerance, hypertensive heart disease without heart failure and patient recently underwent cystoscopy with transurethral resection of bladder tumor and fulguration of bladder lesions on July 31, 2023 ,went to [place] emergency room today because of abdominal pain and had urinary frequency, and only able to void small amounts and there CT scan showed new onset ascites and she was sent here for CT cystogram which [facility] could not perform. Patient was also found to have UTI. Patient states she is having lower abdominal pain. Currently pain is controlled with the pain medication. Had nausea and vomited yesterday. Patient denies any hematuria. Patient was having urinary retention and Woods was placed at [facility]. Urine is somewhat slight pink color. Denies any fevers or chills. Did not move bowels since last couple of days. Appetite is down past couple of days. Denies any chest pain or shortness of breath. No headache. No cough. Currently hemodynamically stable. Acute abdominal pain Recent cystoscopy with transurethral resection of bladder tumor and fulguration of bladder lesions on July 31, [address] [facility] [address] abdomen pelvis without contrast showed new onset ascites Was transferred here fo CT cystogram Urology evaluation noted CT cystogram did not demonstrate any drainage of contrast into areas outside of the bladder and therefore unlikely to be a bladder leak. Extraperitoneal collections were also noted which should be adequately managed with catheter in place. The intra-abdominal fluid is likely reactive in response to her recent surgery Urology recommends maintaining woods for 1 week to allow bladder rest and follow up outpatient Continue zosyn for now and follow up urine culture History of hypertension Continue atenolol Resume home losartan. Give 25mg today and resume home dose in AM UTI Received Rocephin Placed on Zosyn currently Will follow cultures. SHANNA Cr 1.3 on admission. Improved to 0.74 avoid nephrotoxic agents Monitor Hyperlipidemia On statin DVT prophylaxis SCDs Disposition Med/telemetry Full code I spent a total of 50 minutes coordinating, documenting and providing care for this patient excluding time spent in performance of separately billed services Admission and Anticipated Discharge Date Admission Date: August 03, 2023 Subjective Patient seen and examined Reports no complaints today on ROS Physical Exam Constitutional: + well hydrated; no acute distress Eyes: PERRL, conjunctivae normal, anicteric sclerae ENMT: external ear and nose normal, oropharynx normal Respiratory: normal respiratory effort, lungs clear to auscultation Cardiovascular: Rate/Rhythm: regular rate and regular rhythm Gastrointestinal (Abdomen): Inspection/Auscultation: abdomen normal to inspection; abdomen not distended +suprapubic tenderness Musculoskeletal: no cyanosis or clubbing, extremities motor strength 5/5 Neurologic: PERRL, EOMI, accommodation nl, no face palsy, no dysarthria Psychiatric: A+Ox3, euthymic affect Genitourinary: Woods in situ Results & Data Results & Data Vital Signs (Past 12 Hours) Vital Signs Temp Pulse Pulse Resp BP BP Pulse Ox 08/04/23 11:40 36.8 C 65 18 149/79 H 95 08/04/23 08:21 79 08/04/23 07:21 36.8 C 63 18 163/81 H 94 08/04/23 06:18 92 H 156/61 H 08/04/23 05:42 85 176/81 H 08/04/23 04:23 36.7 C 76 20 190/75 H 94 O2 Del Method 08/04/23 11:40 Room Air 08/04/23 08:21 08/04/23 07:21 Room Air 08/04/23 06:18 08/04/23 05:42 08/04/23 04:23 Room Air
[2023-08-04] MEDS: LOSARTAN POTASSIUM 25 MG TAB PO ONE (14:43)
[2023-08-04 16:51] LABS: BUN Creatinine Ratio 14.1 (10-20); Creatinine Clr Calc Pharmacy 50.2 ml/min; Est GFR (African American) 67.4 ml/min; Est GFR (Non-African American) 58.1 ml/min; Potassium 3.5 mmol/L (3.5-5.1)
[2023-08-05] MEDS: LOSARTAN POTASSIUM 50 MG TAB PO SCH (07:52)
[2023-08-05 08:04] LABS: Hematocrit (blood only) 35.8 % (37.0-47.0); Mean Corpuscular Hemoglobin 28.4 pg (25.0-34.0); Mean Corpuscular Hgb Conc 33.5 g/dL (32.0-36.0); Mean Corpuscular Volume 84.6 fL (80.0-100.0); Mean Platelet Volume 10.5 fL (9.4-12.4); Platelet Count 252 K/uL (130-400); RDW Coefficient of Variation 13.7 % (11.5-14.5); RDW Standard Deviation 42.5 fL (36.4-46.3); Red Blood Count 4.23 M/uL (4.20-5.40); White Blood Count 7.39 K/ul (4.8-10.8)
[2023-08-05 08:30] LABS: BUN Creatinine Ratio 23.7 (10-20); Calcium 9.1 mg/dl (8.6-10.3); Creatinine Clr Calc Pharmacy 83.2 ml/min; Est GFR (African American) 108.4 ml/min; Est GFR (Non-African American) 93.5 ml/min; Potassium 3.7 mmol/L (3.5-5.1)
--- NOTE | 2023-08-05 09:58 | Urology Progress Note ---
Date of Service August 05, 2023 Assessment & Plan (1) Abdominal pain, acute: (2) Urinary retention: Plan 68yo F who is s/p TURBT 07/31/[address] De Anda admitted for concern of bladder leak. CT cystogram did not demonstrate any drainage of contrast into areas outside of the bladder and therefore unlikely to be a bladder leak. Extraperitoneal collections were also noted which should be adequately managed with catheter in place. The intra-abdominal fluid is likely reactive in response to her recent surgery. Overall feeling well. No reported pain at present. She is afebrile, hypertensive. Labs today showing no leukocytosis and normal renal function. Urine culture negative. Mendoza draining appropriately - urine is clear yellow. Plan- No plan for intervention. OK for discharge from perspective. Maintain Mendoza catheter for approximately 1 week. Will arrange outpatient follow-up with our service for catheter removal. will sign- off. Please call with any further questions or concerns. Admission and Anticipated Discharge Date Admission Date: August 03, 2023 Subjective Pt examined at bedside this AM. Awake, sitting in bedside chair on arrival. No acute distress. Denies abdominal, flank, and suprapubic pain. Denies f/c/n/v. Mendoza draining clear yellow urine. Review of Systems Constitutional: as per Subjective / HPI Genitourinary: as per Subjective / HPI Physical Exam Constitutional: no acute distress Respiratory: no respiratory distress and no labored breathing Neurologic: awake Psychiatric: A+Ox3, euthymic affect Genitourinary: Mendoza draining clear yellow urine Results & Data Vital Signs (Past 12 Hours) Vital Signs Temp Pulse Pulse Resp BP BP Pulse Ox 08/05/23 08:41 73 08/05/23 07:25 36.7 C 74 18 172/71 H 93 08/05/23 05:15 36.4 C L 77 20 170/77 H 93 08/04/23 23:37 36.9 C 69 20 139/64 92 08/04/23 21:58 69 O2 Del Method 08/05/23 08:41 08/05/23 07:25 Room Air 08/05/23 05:15 Room Air 08/04/23 23:37 Room Air 08/04/23 21:58 PG Care Time/CCT Total # of Minutes Spent Total Time Spent with Patient: Total time spent is greater than 50% in coordination of care (as documented) at patient's floor/unit and/or counseling patient: Coding Level of Care Code 21971 SUB INP/OBS CARE 2/35MIN Diagnoses Abdominal pain, acute R10.9 Urinary retention R33.9
--- NOTE | 2023-08-05 12:13 | Discharge Summary ---
Date of Service August 05, 2023 Admission HPI Per Admitting Provider 68-year-old female with past medical history significant for hyperlipidemia, hypertension, arthrosclerosis of aorta, irritable bowel syndrome, recurrent UTI, lactulose intolerance, hypertensive heart disease without heart failure and patient recently underwent cystoscopy with transurethral resection of bladder tumor and fulguration of bladder lesions on July 31, 2023 ,went to [place] emergency room today because of abdominal pain and had urinary frequency, and only able to void small amounts and there CT scan showed new onset ascites and she was sent here for CT cystogram which [facility] could not perform. Patient was also found to have UTI. Patient states she is having lower abdominal pain. Currently pain is controlled with the pain medication. Had nausea and vomited yesterday. Patient denies any hematuria. Patient was having urinary retention and Woods was placed at [facility]. Urine is somewhat slight pink color. Denies any fevers or chills. Did not move bowels since last couple of days. Appetite is down past couple of days. Denies any chest pain or shortness of breath. No headache. No cough. Currently hemodynamically stable. Past medical history. As mentioned above. Past surgical history. Right total knee arthroplasty. Carpal tunnel surgery. Colonoscopy. Colonoscopy biopsy. Cystoscopy. Dental surgery. Ligation of oviducts. Cataract surgery. Repair of left knee cartilage. Sigmoidoscopy. Ultrasound-guided right breast biopsy. Social history. . No smoking. No alcohol use. No drug use. Family history. Father had asthma and allergies, heart disorder, hypertension, lung disorder. Mother had A-fib, hypertension.Aunt had breast cancer. Paternal grandmother had colon cancer. Maternal grandmother had diabetes. Admission Exam Per Admitting Provider General- Not in distress Head- atraumatic Eyes- PERRL. ENT- oropharynx clear Neck- supple, no JVD. Lungs- clear to auscultation no wheezing or crackles. Heart- regular rate and rhythm; no murmur, no gallop. Abdomen- normal bowel sounds, soft, tenderness in lower abdomen. Extremities- no pretibial edema, no erythema seen. Neuro- alert, oriented PERRL, no facial palsy; no dysarthria; moves extremities. Principal Diagnosis Acute abdominal pain Recent urologic procedure Acute kidney injury Discharge Exam Constitutional + well hydrated; no acute distress Eyes PERRL, conjunctivae normal, anicteric sclerae ENMT external ear and nose normal, oropharynx normal Respiratory normal respiratory effort, lungs clear to auscultation Cardiovascular Rate/Rhythm: regular rate and regular rhythm Gastrointestinal (Abdomen) Inspection/Auscultation: abdomen normal to inspection; abdomen not distended No abdominal tenderness Musculoskeletal no cyanosis or clubbing, extremities motor strength 5/5 Neurologic PERRL, EOMI, accommodation nl, no face palsy, no dysarthria Psychiatric A+Ox3, euthymic affect Genitourinary Woods in situ with clear urine Discharge Data Allergies Allergy/AdvReac Type Severity Reaction Status Date / Time iodine Allergy Mild "LOCAL Verified 08/03/23 01:03 REACTION" Sulfa (Sulfonamide Allergy Unknown UNKNOWN Verified 08/03/23 01:03 Antibiotics) Consultations 08/03/23 00:32 ED Decision to Admit Stat 08/03/23 05:44 Consult Urology Routine Ordered Studies 08/03/23 01:17 CT abd pelvis IV con only Stat 08/03/23 01:55 US GB [US gallbladder] Stat Hospital Course (1) Abdominal pain, acute: 68-year-old female with past medical history significant for hyperlipidemia, hypertension, arthrosclerosis of aorta, irritable bowel syndrome, recurrent UTI, lactulose intolerance, hypertensive heart disease without heart failure and patient recently underwent cystoscopy with transurethral resection of bladder tumor and fulguration of bladder lesions on July 31, 2023 ,went to [place] emergency room today because of abdominal pain and had urinary frequency, and only able to void small amounts and there CT scan showed new onset ascites and she was sent here for CT cystogram which [facility] could not perform. Patient was also found to have UTI. Patient states she was having lower abdominal pain. Currently pain is controlled with the pain medication. Kusum ent denies any hematuria. Patient was having urinary retention and Woods was placed at [facility]. Urine is somewhat slight pink color. Denies any fevers or chills. Did not move bowels since last couple of days. Appetite is down past couple of days. Denies any chest pain or shortness of breath. No headache. No cough. Currently hemodynamically stable. Acute abdominal pain Recent cystoscopy with transurethral resection of bladder tumor and fulguration of bladder lesions on July 31, [address] [facility] CT abdomen pelvis without contrast showed new onset ascites Was transferred here fo CT cystogram Urology evaluated CT cystogram did not demonstrate any drainage of contrast into areas outside of the bladder and therefore unlikely to be a bladder leak. Extraperitoneal collections were also noted which should be adequately managed with catheter in place. The intra-abdominal fluid is likely reactive in response to her recent surgery Acute abdominal pain may be related to this as well urinary retention reported at [place] Urinary retention, a postprocedural complication of recent TURBT Patient was on zosyn while inpatient Urine culture was negative. Unlikely urinary tract infection Abdominal pain resolved Patient was discharged on augmentin for 2 more days inview of recent procedure/CT findings Urology recommends maintaining woods for 1 week to allow bladder rest and follow up outpatient Hypertension Continue atenolol and losartan SHANNA Cr 1.3 on admission. SHANNA resolved Cr is 0.59 today Losartan was initially held on admission. Resumed with resolution Hyperlipidemia On statin Total Time Total Time Spent Total Time Spent (In Minutes): 35 Total Time Includes: Examination of the Patient, Discharge Planning and Medication Reconciliation Discharge Plan Discharge Items Patient Disposition: Home - Self-Care Reason For Visit: ABDOMINAL PAIN, NEW ASCITES, RECENT PROCEDURE Discharge Diagnosis: Acute abdominal pain Recent urologic procedure Acute kidney injury Condition on Discharge: Good Activity: Resume your previous activity Non-emergency contact: Primary Care Provider and Urologist Call non-emergency contact if: you have any medication questions and your symptoms worsen Follow-up/Referrals: Paramjit De Anda DO [Physician] - 08/15/23 11:00 am Karime Yin DO [Primary Care Provider] - (Date & Time 08/12/2023 1:10 PM Provider Karime Yin DO Department [facility] ) Diet: Heart Healthy Addcristofer Attending Provider Instructions: Mrs Nava You came to the hospital for abdominal pain after recent urology procedure and concern for possible bladder perforation. You were evaluated and there was no perforation. You are being discharged with a woods catheter. You are being discharged on 2 more days of antibiotics treatment Please ensure follow up with your Family Doctor and Urology It was a pleasure taking care of you. [employer] Skip Pitman Provider Instructions: Please call the urology office at [phone] with any questions, concerns or need to reschedule appointments for any reason. We are happy to assist you Woods Catheter care: Keep the catheter well secured with either a leg back or leg strap with large bag. Empty your bag when it's about half full. Use mild soap (such as Dove or Dial) and water to wash the catheter daily, or more frequently if needed. You may shower as normal. Please avoid tub baths or soaking until catheter removed. When to call [facility] Urology at [phone]: Your urine contains heavy blood clots You are constantly leaking urine or your catheter stops draining Your pain is not relieved with medication Pending Studies at Discharge: No Stand-Alone Forms: [facility] [employer], Smoking Cessation Medications and DC Order Prescriptions: New amoxicillin-pot clavulanate 875-125 mg tablet 1 tab PO BID 2 Days Qty: 4 0RF Continued losartan 50 mg Tablet 50 mg PO QAM atorvastatin 20 mg Tablet 20 mg PO QAM hydrochlorothiazide 25 mg Tablet 25 mg PO QAM atenolol 50 mg Tablet 50 mg PO QAM fluticasone propionate 50 mcg/actuation [place],Suspension 2 spray INTRANASAL QAM dicyclomine 10 mg Capsule 10 mg PO Q6H PRN (Reason: Abdominal Discomfort) loperamide 2 mg Capsule 2 mg PO Q6H PRN (Reason: Diarrhea) triamcinolone acetonide 0.1 % Cream 1 applic TOPICAL BID PRN (Reason: ud) famotidine [Pepcid] 20 mg Tablet 20 mg PO QAM PRN (Reason: Heartburn) lactase [Lactose Fast Acting Relief] 9,000 unit Tablet 9,000 unit PO AC PRN (Reason: ud) Rx Instructions: administer with first bite of dairy food celecoxib [Celebrex] 100 mg Capsule 100 mg PO QAM clotrimazole 1 % Cream 1 applic TOPICAL BID PRN (Reason: ud) loratadine 10 mg Tablet 10 mg PO QAM PRN (Reason: seasonal allergies) tamsulosin 0.4 mg capsule 0.4 mg PO QAM oxycodone-acetaminophen [Percocet] 7.5-325 mg tablet 1 tab PO Q8H PRN (Reason: pain) Qty: 7 0RF phenazopyridine 95 mg Tablet 95 mg PO TID PRN (Reason: Bladder Spasms) d-mannose 1 tab PO DAILY multivitamin Tablet 1 tab PO QAM phenazopyridine 95 mg Tablet 190 mg PO QAM Discontinued nitrofurantoin monohyd/m-cryst [Macrobid] 100 mg capsule 100 mg PO Q12H 5 Days Qty: 10 0RF Rx Instructions: must administer with a meal/food cephalexin 500 mg capsule 500 mg PO BID 7 Days Qty: 14 0RF Discharge Orders: Discharge Order (Routine); Ordered 08/05/23 Ordered By: Angeline Mota Admission Data Admit Date/Time: 08/03/23 02:15 Attending Provider: Angeline Mota I. Admit Provider: Gerry Cody Primary Care Provider: Karime Yin Other Providers: Inocencio Albert; Yordan Iglesias; Vicente Monique; Christina Mi; Paramjit De Anda; Renetta Holt; Kaya Buitrago; Rad Love; Itzel Leong; Gabino Marroquin; Scarlet Stewart; Uzair Bacon; Gerry Cody
== END 2023-08-05 17:27 | disposition home or self-care (01) | DRG 669 ==
LOC: ED 00:08 → 2S 02:15 → 2W 15:54